=== PATIENT | female | born 1960 | race Caucasian/White ===

== ENCOUNTER → 2021-07-04 | Day surgery (SDC) | payer OTHER ==
[~2021-07-04] MED LIST: ACETAMINOPHEN 325 MG TABLET PO PRN; ACETAMINOPHEN 500 MG TABLET PO ONE; ALBUTEROL SULFATE 2.5 MG/3 ML NEBU. NEB PRN; ATROPINE 0.5 MG/5 ML DISP.SYRIN. IV PRN; DEXAMETHASONE SOD PHOS 20 MG/5 ML VIAL. ONE; FLUT9.9S NS; GELATIN SPONGE SIZE 12-7MM SPONGE. ONE; GLYCOPYRROLATE 1 MG/5 ML VIAL. ONE; KETOROLAC 30 MG/ML VIAL. ONE; LEXAPRO10 MG PO; LIDOCAINE 1%/EPI 1:100,000 20 ML VIAL. ONE; LIDOCAINE 2% PF 5 ML VIAL. ONE; LIDOCAINE 2%/EPI 1:100,000 20 ML VIAL. IJ ONE; MIDAZOLAM HCL PF 2 MG/2 ML VIAL. IV PRN; MIDAZOLAM HCL PF 2 MG/2 ML VIAL. ONE; MULT-245 PO; NEOSTIGMINE 10 MG/10 ML VIAL. ONE; ONDANSETRON PF 4 MG/2 ML VIAL. IV PRN; ONDANSETRON PF 4 MG/2 ML VIAL. ONE; OXYMETAZOLINE 0.05% NASAL SPRAY 30ML BOTTLE. NS ONE; PHENOL ORAL SPRAY 177ML BOTTLE. MM PRN; PHENYLEPHRINE 10 MG/ML VIAL. IV ONE; PROPOFOL 10,000 MCG/ML (20ML) VIAL IV ONE; ROCURONIUM 50 MG/5 ML VIAL. ONE; SEVOFLURANE 31 TO 60 MINUTES. IH ONE; SUCCINYLCHOLINE 200 MG/10 ML VIAL. ONE; diphenhydrAMINE 50 MG/ML VIAL IV PRN
[2021-07-04 08:10] LABS: HEMATOCRIT 37.7 % (36.0-47.0); HEMOGLOBIN 12.5 g/dL (12.0-15.5)
[2021-07-04] MEDS: IV RINGERS SOLUTION,LACTATED 1,000 ML IV SCH ×2 (08:10→08:14)
[2021-07-04 10:03] VITALS: BP 123/68
--- NOTE | 2021-07-05 09:10 | OP ---
DATE OF SURGERY: 07/04/2021 PREOPERATIVE DIAGNOSIS: Chronic tonsillitis. POSTOPERATIVE DIAGNOSIS: Chronic tonsillitis. PROCEDURE PERFORMED: Tonsillectomy. INDICATIONS FOR PROCEDURE: Chronic infection. ANESTHESIA: General anesthetic. ESTIMATED BLOOD LOSS: Less than 15 mL. DESCRIPTION OF PROCEDURE: The patient was placed on the operating table in the supine position, given a general anesthetic. When her airway was safe and her vital signs were stable, the table was rotated to 90 degrees. A Zoran mouth gag was then placed in the patient's oral cavity. The tonsils were observed and found to be small and within the tonsil fossa. The tonsil pillars were injected with 1% lidocaine with epinephrine on each side. The left tonsil was approached first. It was grasped with an Allis and retracted to a medial position. A very shallow incision was made with a scalpel blade and dissection was carried out using a Renée dissector and the Coblator. The Coblator controlled bleeding as the procedure progressed and the tonsil was removed. It was noted that there was relatively dense fibrous reactive tissue that anchored the tonsil into the fossa, which was gently dissected to free the tonsil and remove it. Bleeding was then controlled with the use of the Coblator. The right tonsil was then approached in a similar fashion retracting it to a medial position using an Allis and then gently dissecting it with a Renée dissector along with the use of the Coblator. When both tonsils were removed and bleeding controlled, a 0.5 mL of 1% lidocaine with epinephrine was injected in the tonsil fossa for postoperative recovery. Both tonsils were submitted separately to the pathology department for pathological evaluation. The patient's airway was clear. The oropharynx was suctioned free of any mucus and the patient was recovered from her anesthesia and taken to recovery room in stable condition. MILENA/SHIRA DR: Renee TID: [id number]
== END | disposition home or self-care (01) ==
LOC: SURG 06:59
PROVIDERS: ATTEND Otolaryngology
DX: J35.01 Chronic tonsillitis (principal); F41.9 Anxiety disorder, unspecified; Z79.899 Other long term (current) drug therapy; Z72.89 Other problems related to lifestyle; Z98.890 Other specified postprocedural states
CPT/HCPCS: 36415; 42826; 85014; 85018; A4657; J0330; J1100; J1885; J2001; J2250; J2405; J2704; J2710; J3010; J3490; J7120; 88304